=== PATIENT | female | born 1930 | race Caucasian/White ===

== ENCOUNTER 2017-09-10 19:59 | Inpatient (IN) | payer MEDICARE, OTHER ==
[~2017-09-10 19:59] MED LIST: ISOVUE-370 76%-LOCM 1 ML ONE
[2017-09-10] MEDS ORDERED: Piperacillin/Tazobactam 3.375 GM in Sodium Chloride 0.9% 100 ML IVPB SCH (20:45)
[2017-09-10 20:50] LABS: #Eosinphils 0.1 thou/uL (0.0-0.7); #Lymphocytes 1.6 thou/uL (1.20-3.40); #Monocytes 0.2 thou/uL (0.11-0.59); #Neutrophils 4.4 thou/uL (1.40-6.50); %Basophils 0.3 % (0.0-1.0); %Eosinophils 1.2 % (0.0-10.0); %Lymphocytes 25.6 % (21.0-51.0); %Monocytes 3.8 % (0.0-10.0); %Neutrophils 69.2 % (42.0-75.0); Hemoglobin 13.5 g/dL (12.0-16.0); Mean Corpuscular HGB CONC 32.3 g/dL (32.0-36.0); Mean Corpuscular Hemoglobin 30.2 pg (27.0-31.0); Mean Corpuscular Volume 93.6 fl (81.0-99.0); Platelet Count 326 thou/uL (130-400); RBC Distribution Width 14.6 % (11.5-14.5); Red Blood Cell (RBC) Count 4.45 mill/uL (4.20-5.40); White Blood Cell (WBC) Count 6.4 thou/uL (4.8-10.8)
[2017-09-10 21:12] LABS: ALT (SGPT) 10 U/L (8-55); AST (SGOT) 37 U/L (5-34); Albumin 3.3 g/dL (3.4-4.8); Alkaline Phosphatase 56 U/L (40-150); Anion Gap 19 mmol/L (10-20); BUN (Urea Nitrogen) 21 mg/dL (9.8-20.1); Bilirubin, Total 0.6 mg/dL (0.2-1.2); CK (CPK) 18 U/L (29-168); Calc. Creatinine Clearance 0 mL/min (70-130); Carbon Dioxide 22 mmol/L (23-31); Chloride 100 mmol/L (98-107); Estimated GFR-MDRD 71; Globulin 4.6 g/dL (2.4-3.5); Glucose 102 mg/dL (83-110); Protein, Total 7.9 g/dL (6.0-8.3); Sodium 136 mmol/L (136-145)
[2017-09-10 21:15] LABS: CKMB 0.6 ng/mL (0-6.6); Troponin I 0.017 ng/mL (< 0.028)
[2017-09-10 21:17] LABS: Bilirubin Large (Negative); Blood, Urine Small (Negative); Clarity CLEAR (Clear); Glucose, Urine (Dipstick) Negative (Negative); Leukocyte Negative (Negative); Nitrite Negative (Negative); Protein, Urine (Dipstick) 100 mg/dL (Neg-Trace); Specific Gravity, Urine 1.033 (1.002-1.036); pH, Urine 5.5 (5.0-9.0)
[2017-09-10 21:19] LABS: Bacteria/HPF None Seen HPF (None Seen); Pathc Cast-AUWi Flag 1.76 (0-2.49)
--- NOTE | 2017-09-10 21:24 | RAD ---
PORTABLE CHEST: 09/10/17 HISTORY: Dyspnea. Heart size is enlarged. There are atherosclerotic changes of the aorta. There are chronic lung change s without focal infiltrates. IMPRESSION: Cardiomegaly with chronic lung change POS: [facility]
[2017-09-10 21:28] LABS: Hyaline Casts/LPF 7-10 HYALINE CAST LPF (0-3 Hyaline)
[2017-09-10 21:29] LABS: Renal Epithelial 0-3 HPF (0-3)
--- NOTE | 2017-09-10 22:18 | CT ---
CT ANGIOGRAM THORAX WITH IV CONTRAST AND 3D RECONSTRUCTIONS: 09/10/17 HISTORY: Dyspnea. Hypoxic. FINDINGS: No filling defects are seen in the pulmonary arteries to suggest a pulmonary embolus. The thoracic aorta is not well opacified on this examination for evaluation of aortic dissection. How ever, no aneurysmal dilatation is seen involving the thoracic aorta. Dense atherosclerotic vascular c alcifications are seen in the coronary arteries as well as involving the thoracic aorta. The heart is enlarged. There are bilateral pleural effusions with associated patchy parenchymal opacities at each lung base probably related to passive atelectasis. However, there is also decreased attenuation seen within lef t lower lobe bronchi which could be related to mucous plugging. Similar findings but to a lesser exte nt is seen in the right lower lobe. A few minimal patchy density seen at the peripheral aspect of the right upper lobe which could be related to infectious or inflammatory process. Linear densities are seen in the lingula which could be related to atelectasis or scarring. No lymphadenopathy is appreciated. Calcified granuloma is seen in the spleen. Vascular calcification seen in the abdominal aorta. The remainder of the upper abdomen has a normal CT appearance. There are compression fractures involving several thoracic vertebral bodies with vertebra planus type deformity involving the T9 vertebral body and prominent compression fracture of the T11 vertebral humaira dy as well. Multilevel degenerative changes are present. IMPRESSION: 1. No CT evidence of a pulmonary embolus. 2. Small bilateral pleural effusion and associated passive atelectasis. 3. Patchy density in the peripheral aspect of the right upper lobe which could be related to inf ectious or inflammatory process. 4. Cardiomegaly. 5. Dense atherosclerotic vascular calcifications. 6. Multiple compression fractures of indeterminate age involving the thoracic spine. There is ex aggerated kyphosis. POS: [facility]
--- NOTE | 2017-09-11 00:05 | HP ---
PRIMARY CARE PHYSICIAN: Sean Kennedy MD REASON FOR ADMISSION: Transfer from [facility] for hypoxia. HISTORY OF PRESENT ILLNESS: An 87-year-old female who is DNR and lives at [facility]. F or the last 2-3 weeks, she was having upper respiratory infection and subsequently she was having wor se cough with productive of sputum and primary care physician gave her antibiotic. Patient has finis hed antibiotic course, but her cough is not getting better. She was not on oxygen before and at [facility] home, she was requiring oxygen. She was feeling more short of breath and that is why she request ed to go to the hospital. In the emergency room, we noted that she was having cough productive of yellowish sputum. She was hy poxic and she was requiring oxygen. She was afebrile in the emergency room. Her initial chest x-ray was unremarkable, and they did a CT angio to rule out PE that showed right upper lobe infiltration a nd bibasilar pleural effusion. The patient denies any pleuritic chest pain. She denies any UTI symp toms. She denies any constipation, diarrhea, melena, or hematochezia. The patient reports that she has history of atrial fibrillation and she is on anticoagulation therapy . She is not sure about the diagnosis of congestive heart failure. 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 Kennedy. ALLERGIES: CIPRO, CODEINE, PEANUT, SULFA. CURRENT HOME MEDICATIONS: Amlodipine 2.5 mg p.o. daily, Tenormin 25 mg p.o. daily, vitamin D3 of 200 0 units p.o. daily, folic acid 1 mg p.o. daily, methotrexate 2.5 mg p.o. on Tuesday, Synthroid 100 mcg p.o. daily, Remeron 7.5 mg p.o. at bedtime, magnesium oxide 400 mg p.o. daily, potassium chloride 20 mEq p.o. daily, Dulcolax 10 mg p.o. daily, Coumadin 2.5 mg daily on Tuesday, Tuesday, Tuesday, , , Tuesday, and 5 mg on Tuesday. REVIEW OF SYSTEMS: The following complete review of systems was negative, unless otherwise mentioned in the HPI or below: Constitutional: Weight loss or gain, ability to conduct usual activities. Sk in: Rash, itching. Eyes: Double vision, pain. ENT/Mouth: Nose bleeding, neck stiffness, pain, te nderness. Cardiovascular: Palpitations, dyspnea on exertion, orthopnea. Respiratory: Shortness of breath, wheezing, cough, hemoptysis, fever or night sweats. Gastrointestinal: Poor appetite, abdom inal pain, heartburn, nausea, vomiting, constipation, or diarrhea. Genitourinary: Urgency, frequenc y, dysuria, nocturia. Musculoskeletal: Pain, swelling. Neurologic/Psychiatric: Anxiety, depressio n. Allergy/Immunologic: Skin rash, bleeding tendency. Please see my HPI for pertinent positives an d negatives. PAST MEDICAL HISTORY: Atrial fibrillation, diabetes type 2, hypertension, hypothyroidism, peripheral neuropathy, osteoarthritis, normochromic normocytic anemia, history of breast cancer, history of CHF , oropharyngeal dysphagia, and dementia. PAST SURGICAL HISTORY: Bilateral mastectomy, hysterectomy. PAST PSYCHIATRIC HISTORY: Anxiety and depression. SOCIAL HISTORY: The patient lives at [facility]. The patient is DNR. No history of cur rent tobacco, alcohol, or illicit drug abuse. She was an exsmoker. FAMILY HISTORY: No strong family history of premature coronary artery disease, stroke, or cancer. EMERGENCY ROOM COURSE: Patient is given vancomycin, Zosyn, IV fluid. PHYSICAL EXAMINATION: VITAL SIGNS: On arrival, blood pressure 152/85, pulse 82, respiratory rate 24, temperature 97.6, sat uration 93% on 2 liter oxygen, weight 61.2 kilograms. GENERAL: The patient is hypertensive, tachypneic, chronically ill. HEAD: Normocephalic, atraumatic. EYES: Pupils round, reactive to light. Extraocular muscles intact. ENT: Dry mucous membranes. No oral lesions, no pharyngeal erythema, no exudate. NECK: Supple. JVD present. No thyromegaly, no carotid bruit. LUNGS: Bibasilar rales noted. Bibasilar reduced air entry and expiratory wheezing heard all over, e specially on the right upper lobe. CARDIAC: S1, S2 appears regular, soft systolic murmur noted parasternally. No gallop, no rub. ABDOMEN: Soft, bowel sounds present, nontender, nondistended. No organomegaly, no mass, no suprapub ic tenderness. BACK: Unremarkable. No CVA tenderness. EXTREMITIES: Upper extremity: Passive movement of all joints are normal. Lower extremities: No ed piedad. Good peripheral pulsation. SKIN: No skin rash. HEMATOLOGIC: No lymphadenopathy. PSYCHIATRIC: Normal affect. SIGNIFICANT LABORATORY AND DIAGNOSTIC DATA: EKG showing atrial fibrillation with controlled ventricu lar response, left axis deviation. CT chest showing cardiomegaly, chronic lung changes. CT chest sh owing bilateral pleural effusions, right upper lobe patchy infiltration, no evidence of pulmonary emb olism. CBC: WBC 6.4, hemoglobin 13.5, platelets 326. BMP: Sodium 136, potassium 5.0, chloride 100 , carbon dioxide 22, anion gap 19, BUN 21, creatinine 0.77, glucose 102, calcium 9.0. Lactic acid 1. 3. LFT: AST 37, ALT 10, alkaline phosphatase 56, albumin 3.3. CK of 18, CK-MB 0.6, troponin I 0.01 7. BNP 157.1. Urinalysis: Rbc 11-20, wbc 4-6. ASSESSMENT: 1. Acute hypoxic respiratory failure. 2. Acute on chronic diastolic heart failure exacerbation. 3. Right upper lobe residential-acquired pneumonia, failed outpatient therapy. 4. Bilateral pleural effusion with atelectasis related with diastolic heart failure. 5. Multiple compression fractures of the thoracic spine. 6. Moderate protein-calorie malnutrition. 7. Atrial fibrillation with controlled ventricular response. 8. Suspected urinary tract infection. 9. Hypertension. 10. Hypothyroidism. 11. Chronic anticoagulation with warfarin. PLAN: Admission to medical floor. Once we verify her home medication, we will start selective home medication, empiric antibiotic therapy with vancomycin and Zosyn. Echocardiography. Pharmacy to man age warfarin, nutritional support with Ensure, Lasix 20 mg IV daily, DuoNeb therapy q.6 hourly. Foll ow up on culture result. Check influenza screen. DVT prophylaxis with warfarin. GI prophylaxis wit h Pepcid. CODE STATUS: DO NOT RESUSCITATE that is confirmed with the patient's family member in the emergency room. Disposition plan based on clinical course. We are expecting patient's stay in hospital more than 2 m idnights. Plan of care discussed with the patient and family member at bedside in the emergency room .
[2017-09-11] MEDS ORDERED: Milk Of Magnesia 30 ML UDCUP PO PRN (01:12)
[2017-09-11] MEDS ORDERED: Diabetic Tussin 200 MG/10 ML UDCUP PO PRN (01:12)
[2017-09-11] MEDS ORDERED: Ondansetron ODT 4 MG TAB SL PRN (01:12)
[2017-09-11] MEDS ORDERED: hydrALAZINE 20 MG/ML VIAL SLOW IVP PRN (01:12)
[2017-09-11] MEDS ORDERED: Sodium Chloride 0.9% 1,000 ML IV SCH (01:12)
[2017-09-11] MEDS ORDERED: Senokot 8.6 MG TAB PO PRN (01:12)
[2017-09-11] MEDS ORDERED: Loperamide HCl 2 MG CAP PO PRN (01:12)
[2017-09-11] MEDS ORDERED: Mag-Al 1200 mg/1200 mg/30 ML UDCUP PO PRN (01:12)
[2017-09-11] MEDS ORDERED: Ondansetron ODT 4 MG TAB PO PRN (01:12)
[2017-09-11] MEDS ORDERED: Ondansetron HCl/PF 4 MG/2 ML Vial IVP PRN ×2 (01:12)
[2017-09-11] MEDS ORDERED: Acetaminophen 325 MG TAB PO PRN ×2 (01:12)
[2017-09-11] MEDS: Piperacillin/Tazobactam 3.375 GM in Sodium Chloride 0.9% 100 ML IVPB SCH ×3 (05:34→17:26)
[2017-09-11] MEDS: Levothyroxine Sodium 100 MCG TAB PO SCH (05:34)
[2017-09-11 05:57] LABS: #Basophils 0.1 thou/uL (0.0-0.2); #Eosinphils 0.2 thou/uL (0.0-0.7); #Lymphocytes 1.4 thou/uL (1.20-3.40); #Monocytes 0.3 thou/uL (0.11-0.59); #Neutrophils 3.3 thou/uL (1.40-6.50); %Basophils 1.1 % (0.0-1.0); %Eosinophils 3.1 % (0.0-10.0); %Lymphocytes 26.7 % (21.0-51.0); %Monocytes 6.1 % (0.0-10.0); Hemoglobin 12.6 g/dL (12.0-16.0); Mean Corpuscular HGB CONC 31.8 g/dL (32.0-36.0); Mean Corpuscular Hemoglobin 29.8 pg (27.0-31.0); Mean Corpuscular Volume 93.7 fl (81.0-99.0); Mean Platelet Volume 6.9 fL (7.4-10.4); Platelet Count 293 thou/uL (130-400); RBC Distribution Width 14.7 % (11.5-14.5); Red Blood Cell (RBC) Count 4.21 mill/uL (4.20-5.40); White Blood Cell (WBC) Count 5.3 thou/uL (4.8-10.8)
[2017-09-11] MEDS ORDERED: Piperacillin/Tazobactam 4.5 GM in Sodium Chloride 0.9% 100 ML IVPB SCH (06:00)
[2017-09-11 06:21] LABS: Anion Gap 11 mmol/L (10-20); BUN (Urea Nitrogen) 18 mg/dL (9.8-20.1); Calc. Creatinine Clearance 50 mL/min (70-130); Calcium 8.7 mg/dL (7.8-10.44); Carbon Dioxide 30 mmol/L (23-31); Chloride 100 mmol/L (98-107); Estimated GFR-MDRD 75; Glucose 89 mg/dL (83-110); Sodium 137 mmol/L (136-145); Uric Acid 5.9 mg/dL (2.6-6.0)
[2017-09-11 06:50] LABS: Prothrombin Time 88.1 SEC (12.0-14.7)
[2017-09-11 06:53] LABS: INR-International Normal Ratio 10.2
[2017-09-11] MEDS ORDERED: Phytonadione 10 MG/ML AMP PO SCH (08:30)
[2017-09-11] MEDS: Atenolol 25 MG TAB PO SCH (09:09)
[2017-09-11] MEDS: Saccharomyces boulardii 250 MG CAP PO SCH (09:09)
[2017-09-11] MEDS: Folic Acid 1 MG TAB PO SCH (09:09)
[2017-09-11] MEDS: Magnesium Oxide 400 MG TAB PO SCH (09:09)
[2017-09-11] MEDS: Famotidine 20 MG TAB PO SCH ×2 (09:10→22:01)
[2017-09-11] MEDS: guaiFENesin ER 600 MG TAB PO SCH ×2 (09:10→22:01)
[2017-09-11] MEDS: Amlodipine 5 MG TAB PO SCH (09:10)
[2017-09-11] MEDS: Potassium Chloride 20 MEQ TAB PO SCH (09:10)
[2017-09-11] MEDS: Furosemide 20 MG/2 ML VIAL SLOW IVP SCH (09:10)
[2017-09-11] MEDS: Oseltamivir 75 MG CAP PO SCH ×2 (09:10→22:01)
--- NOTE | 2017-09-11 11:49 | PDOC.PN ---
- Subjective Encounter Start Date: 09/11/17 Encounter Start Time: 08:00 Subjective: no sob, feels better this morning - Objective Resuscitation Status: Resuscitation Status DNR:Do Not Resuscitate MAR Reviewed: Yes Vital Signs & Weight: Vital Signs (12 hours) Temp Pulse Resp BP Pulse Ox 09/11/17 11:35 97.5 F L 67 16 154/89 H 93 L 09/11/17 09:10 64 09/11/17 09:09 64 09/11/17 08:42 97.8 F 59 L 20 136/84 97 09/11/17 08:00 97.8 F 64 20 93 L 09/11/17 04:00 156/96 H 09/11/17 00:35 98.9 F 82 16 167/91 H 95 Weight Weight 134 lb 14.766 oz Result Diagrams: 09/11/17 05:26 09/11/17 05:27 Additional Labs: Accuchecks 09/11/17 05:08 POC Glucose 105 Phys Exam - Physical Examination HEENT: PERRLA, sclera anicteric Neck: no JVD, supple Respiratory: no wheezing, no rales Cardiovascular: RRR, no significant murmur Gastrointestinal: soft, non-tender, positive bowel sounds Musculoskeletal: no edema, pulses present Neurological: non-focal, moves all 4 limbs Dx/Plan (1) Influenza B Code(s): J10.1 - FLU DUE TO OTH IDENT INFLUENZA VIRUS W OTH RESP MANIFEST Status: Acute (2) PNA (pneumonia) Code(s): J18.9 - PNEUMONIA, UNSPECIFIED ORGANISM Status: Acute Qualifiers: Pneumonia type: due to unspecified organism Laterality: right (3) Compression fracture of thoracic vertebra Code(s): S22.000A - WEDGE COMPRESSION FRACTURE OF UNSP THORACIC VERTEBRA, INIT Status: Chronic Qualifiers: Fracture type: closed (4) Afib Code(s): I48.91 - UNSPECIFIED ATRIAL FIBRILLATION Status: Chronic Qualifiers: Atrial fibrillation type: chronic Qualified Code(s): I48.2 - Chronic atrial fibrillation (5) DM type 2 (diabetes mellitus, type 2) Status: Chronic Qualifiers: Diabetes mellitus complication status: with unspecified complications Diabetes mellitus ad terminal makeup operator insulin use: without mcfp use Qualified Code( s): E11.8 - Type 2 diabetes mellitus with unspecified complications (6) HTN (hypertension) Code(s): I10 - ESSENTIAL (PRIMARY) HYPERTENSION Status: Chronic Qualifiers: Hypertension type: essential hypertension Qualified Code(s): I10 - Essential (primary) hypertension (7) Dyslipidemia Code(s): E78.5 - HYPERLIPIDEMIA, UNSPECIFIED Status: Chronic (8) Hypothyroidism Code(s): E03.9 - HYPOTHYROIDISM, UNSPECIFIED Status: Chronic Qualifiers: Hypothyroidism type: unspecified Qualified Code(s): E03.9 - Hypothyroidism , unspecified (9) Warfarin-induced coagulopathy Code(s): D68.9 - COAGULATION DEFECT, UNSPECIFIED; T45.515A - ADVERSE EFFECT OF ANTICOAGULANTS, INITIAL ENCOUNTER Status: Acute (10) Dementia Code(s): F03.90 - UNSPECIFIED DEMENTIA WITHOUT BEHAVIORAL DISTURBANCE Status: Chronic Qualifiers: Dementia type: unspecified type - Plan inr is 10 this am, one dose vit K po -: has dried up blood over gums, no overt bleeding for now -: is on vanc and zosyn, nebs -: dc lasix iv -: PT to mobilize as tolerated, watch for falls with coagulopathy * . Review of Systems - Medications/Allergies Allergies/Adverse Reactions: Allergies Allergy/AdvReac Type Severity Reaction Status Date / Time ciprofloxacin [From Cipro] Allergy Verified 09/10/17 20:42 codeine Allergy Verified 09/10/17 20:42 peanut Allergy Verified 09/10/17 20:42 Sulfa (Sulfonamide Allergy Verified 09/10/17 20:42 Antibiotics) Medications: Current Medications Acetaminophen (Tylenol) 650 mg PO Q4H PRN PRN Reason: Headache/Fever or Pain Al Hydroxide/Mg Hydroxide (Maalox) 30 ml PO Q6H PRN PRN Reason: Heartburn or Indigestion Albuterol/Ipratropium (Duoneb) 3 ml NEB Q6H PRN PRN Reason: SOB &/or Wheezing Amlodipine Besylate (Norvasc) 2.5 mg PO DAILY [facility] Last Admin: 09/11/17 09:10 Dose: 2.5 mg Atenolol (Tenormin) 25 mg PO DAILY [facility] Last Admin: 09/11/17 09:09 Dose: 25 mg Cholecalciferol (Vitamin D3) 2,000 units PO DAILY [facility] Last Admin: 09/11/17 09:10 Dose: 2,000 units Famotidine (Pepcid) 20 mg PO BID [facility] Last Admin: 09/11/17 09:10 Dose: 20 mg Folic Acid (Folvite) 1 mg PO DAILY [facility] Last Admin: 09/11/17 09:09 Dose: 1 mg Furosemide (Lasix) 20 mg SLOW IVP DAILY [facility] Last Admin: 09/11/17 09:10 Dose: 20 mg Guaifenesin (Robitussin Sf) 200 mg PO Q4H PRN PRN Reason: Cough Guaifenesin (Mucinex) 600 mg PO Q12HR [facility] Last Admin: 09/11/17 09:10 Dose: 600 mg Hydralazine HCl (Apresoline) 10 mg SLOW IVP Q4H PRN PRN Reason: Systolic BP > 180 Piperacillin Sod/Tazobactam (Sod 3.375 gm/ Sodium Chloride) 100 mls @ 200 mls/ hr IVPB Q6HR [facility] Last Admin: 09/11/17 05:34 Dose: 100 mls Vancomycin HCl 1.25 gm/ Sodium (Chloride) 250 mls @ 166.667 mls/hr IVPB Q24HR@ 2200 [facility] Levothyroxine Sodium (Synthroid) 100 mcg PO 0600 [facility] Last Admin: 09/11/17 05:34 Dose: 100 mcg Loperamide HCl (Imodium) 2 mg PO PRN PRN PRN Reason: Diarrhea/Loose Stools Magnesium Hydroxide (Milk Of Magnesium) 30 ml PO DAILYPRN PRN PRN Reason: Constipation Magnesium Oxide (Magnesium Oxide) 400 mg PO DAILY [facility] Last Admin: 09/11/17 09:09 Dose: 400 mg Mirtazapine (Remeron) 7.[address] [facility] Miscellaneous Medication (Pharmacy To Dose) 0 each IVPB PRN PRN PRN Reason: [facility] Pharmacy to Dose Miscellaneous Medication (Pharmacy To Dose) 0 each PO PRN PRN PRN Reason: [facility] Pharmacy to Dose Ondansetron HCl (Zofran Odt) 4 mg PO Q6H PRN PRN Reason: Nausea/Vomiting Ondansetron HCl (Zofran) 4 mg IVP Q6H PRN PRN Reason: Nausea/Vomiting Oseltamivir Phosphate (Tamiflu) 75 mg PO BID [facility] Stop: 09/15/17 21:01 Last Admin: 09/11/17 09:10 Dose: 75 mg Pneumococcal 13-Valent Conj Vacc (Prevnar) 0.5 ml IM .ONCE ONE Stop: 09/12/17 09:01 Potassium Chloride (K-Dur) 20 meq PO QAM-WM [facility] Last Admin: 09/11/17 09:10 Dose: 20 meq Saccharomyces Boulardii (Florastor) 250 mg PO DAILY [facility] Last Admin: 09/11/17 09:09 Dose: 250 mg Senna (Senokot) 2 tab PO HSPRN PRN PRN Reason: Constipation Sodium Chloride (Flush - Normal Saline) 10 ml IVF Q12HR [facility] Last Admin: 09/11/17 09:11 Dose: 10 ml Sodium Chloride (Flush - Normal Saline) 10 ml IVF PRN PRN PRN Reason: Saline Flush
[2017-09-11] MEDS ORDERED: Vancomycin HCl 1.25 GM in Sodium Chloride 0.9% 250 ML 250 ML IVPB SCH (21:00)
[2017-09-11] MEDS: Mirtazapine 15 MG TAB PO SCH (22:01)
[2017-09-11] MEDS: Vancomycin HCl 1.25 GM in Sodium Chloride 0.9% 250 ML 250 ML IVPB SCH (22:09)
[2017-09-12] MEDS: Piperacillin/Tazobactam 3.375 GM in Sodium Chloride 0.9% 100 ML IVPB SCH ×4 (00:31→17:59)
[2017-09-12 05:44] LABS: #Eosinphils 0.2 thou/uL (0.0-0.7); #Lymphocytes 1.5 thou/uL (1.20-3.40); #Monocytes 0.2 thou/uL (0.11-0.59); #Neutrophils 3.8 thou/uL (1.40-6.50); %Basophils 0.6 % (0.0-1.0); %Eosinophils 3.3 % (0.0-10.0); %Lymphocytes 26.8 % (21.0-51.0); %Monocytes 3.9 % (0.0-10.0); %Neutrophils 65.4 % (42.0-75.0); Hemoglobin 12.2 g/dL (12.0-16.0); Mean Corpuscular HGB CONC 31.6 g/dL (32.0-36.0); Mean Corpuscular Hemoglobin 29.7 pg (27.0-31.0); Mean Corpuscular Volume 93.9 fl (81.0-99.0); Mean Platelet Volume 7.3 fL (7.4-10.4); Platelet Count 311 thou/uL (130-400); RBC Distribution Width 14.7 % (11.5-14.5); Red Blood Cell (RBC) Count 4.12 mill/uL (4.20-5.40); White Blood Cell (WBC) Count 5.7 thou/uL (4.8-10.8)
[2017-09-12 05:50] LABS: INR-International Normal Ratio 1.7; PTT 43.3 SEC (22.9-36.1); Prothrombin Time 20.5 SEC (12.0-14.7)
[2017-09-12 05:57] LABS: Anion Gap 15 mmol/L (10-20); BUN (Urea Nitrogen) 16 mg/dL (9.8-20.1); Calc. Creatinine Clearance 52 mL/min (70-130); Calcium 8.7 mg/dL (7.8-10.44); Carbon Dioxide 28 mmol/L (23-31); Chloride 99 mmol/L (98-107); Estimated GFR-MDRD 78; Glucose 94 mg/dL (83-110); Potassium 3.7 mmol/L (3.5-5.1); Sodium 138 mmol/L (136-145)
[2017-09-12] MEDS: Levothyroxine Sodium 100 MCG TAB PO SCH (06:08)
[2017-09-12] MEDS ORDERED: Prevnar 13-Val Conj/PF 0.5 ML SYRINGE IM ONE (09:00)
[2017-09-12] MEDS: Potassium Chloride 20 MEQ TAB PO SCH (09:21)
[2017-09-12] MEDS: Folic Acid 1 MG TAB PO SCH (09:22)
[2017-09-12] MEDS: guaiFENesin ER 600 MG TAB PO SCH ×2 (09:22→20:17)
[2017-09-12] MEDS: Amlodipine 5 MG TAB PO SCH (09:22)
[2017-09-12] MEDS: Saccharomyces boulardii 250 MG CAP PO SCH (09:22)
[2017-09-12] MEDS: Famotidine 20 MG TAB PO SCH ×2 (09:23→20:17)
[2017-09-12] MEDS: Atenolol 25 MG TAB PO SCH (09:23)
[2017-09-12] MEDS: Magnesium Oxide 400 MG TAB PO SCH (09:23)
[2017-09-12] MEDS: Furosemide 20 MG/2 ML VIAL SLOW IVP SCH (09:23)
[2017-09-12] MEDS: Oseltamivir 75 MG CAP PO SCH ×2 (09:23→20:16)
--- NOTE | 2017-09-12 13:35 | PDOC.PN ---
- Subjective Encounter Start Date: 09/12/17 Encounter Start Time: 07:25 Subjective: lethargic says she is still waking up -: no sob - Objective Resuscitation Status: Resuscitation Status DNR:Do Not Resuscitate MAR Reviewed: Yes Vital Signs & Weight: Vital Signs (12 hours) Temp Pulse Resp BP BP Pulse Ox 09/12/17 11:00 97.6 F 64 16 123/81 94 L 09/12/17 09:23 84 138/86 09/12/17 09:22 88 138/86 09/12/17 07:21 98.2 F 88 20 109/72 94 L 09/12/17 05:00 98.6 F 88 18 160/89 H 93 L Weight Weight 126 lb 3 oz I&O: 09/11/17 09/12/17 09/13/17 06:59 06:59 06:59 Intake Total 740 180 Balance 740 180 Result Diagrams: 09/12/17 04:49 09/12/17 04:49 Phys Exam - Physical Examination HEENT: PERRLA dry mucosa Neck: no JVD, supple Respiratory: no wheezing, no rales rhonchi+ Cardiovascular: RRR, no significant murmur Gastrointestinal: soft, non-tender, positive bowel sounds Musculoskeletal: no edema, pulses present Neurological: non-focal, moves all 4 limbs Dx/Plan (1) Influenza B Code(s): J10.1 - FLU DUE TO OTH IDENT INFLUENZA VIRUS W OTH RESP MANIFEST Status: Acute (2) PNA (pneumonia) Code(s): J18.9 - PNEUMONIA, UNSPECIFIED ORGANISM Status: Acute Qualifiers: Pneumonia type: due to unspecified organism Laterality: right (3) Compression fracture of thoracic vertebra Code(s): S22.000A - WEDGE COMPRESSION FRACTURE OF UNSP THORACIC VERTEBRA, INIT Status: Chronic Qualifiers: Fracture type: closed (4) Afib Code(s): I48.91 - UNSPECIFIED ATRIAL FIBRILLATION Status: Chronic Qualifiers: Atrial fibrillation type: chronic Qualified Code(s): I48.2 - Chronic atrial fibrillation (5) DM type 2 (diabetes mellitus, type 2) Status: Chronic Qualifiers: Diabetes mellitus complication status: with unspecified complications Diabetes mellitus retirement insulin use: without petroleum terminal plant operator use Qualified Code( s): E11.8 - Type 2 diabetes mellitus with unspecified complications (6) HTN (hypertension) Code(s): I10 - ESSENTIAL (PRIMARY) HYPERTENSION Status: Chronic Qualifiers: Hypertension type: essential hypertension Qualified Code(s): I10 - Essential (primary) hypertension (7) Dyslipidemia Code(s): E78.5 - HYPERLIPIDEMIA, UNSPECIFIED Status: Chronic (8) Hypothyroidism Code(s): E03.9 - HYPOTHYROIDISM, UNSPECIFIED Status: Chronic Qualifiers: Hypothyroidism type: unspecified Qualified Code(s): E03.9 - Hypothyroidism , unspecified (9) Warfarin-induced coagulopathy Code(s): D68.9 - COAGULATION DEFECT, UNSPECIFIED; T45.515A - ADVERSE EFFECT OF ANTICOAGULANTS, INITIAL ENCOUNTER Status: Resolved (10) Dementia Code(s): F03.90 - UNSPECIFIED DEMENTIA WITHOUT BEHAVIORAL DISTURBANCE Status: Chronic Qualifiers: Dementia type: unspecified type - Plan inr is 1.7 this am, is off coumadin -: dc lasix, is on tamiflu along with vanc and zosyn -: encourage po intake, eating poorly per staff -: oob to chair as tolerated, watch for falls with prior compression fracture -: nebs, freq pulm toilet * . Review of Systems - Medications/Allergies Allergies/Adverse Reactions: Allergies Allergy/AdvReac Type Severity Reaction Status Date / Time ciprofloxacin [From Cipro] Allergy Verified 09/10/17 20:42 codeine Allergy Verified 09/10/17 20:42 peanut Allergy Verified 09/10/17 20:42 Sulfa (Sulfonamide Allergy Verified 09/10/17 20:42 Antibiotics) Medications: Current Medications Acetaminophen (Tylenol) 650 mg PO Q4H PRN PRN Reason: Headache/Fever or Pain Al Hydroxide/Mg Hydroxide (Maalox) 30 ml PO Q6H PRN PRN Reason: Heartburn or Indigestion Albuterol/Ipratropium (Duoneb) 3 ml NEB Q6H PRN PRN Reason: SOB &/or Wheezing Amlodipine Besylate (Norvasc) 2.5 mg PO DAILY [facility] Last Admin: 09/12/17 09:22 Dose: 2.5 mg Atenolol (Tenormin) 25 mg PO DAILY [facility] Last Admin: 09/12/17 09:23 Dose: 25 mg Cholecalciferol (Vitamin D3) 2,000 units PO DAILY [facility] Last Admin: 09/12/17 09:22 Dose: 2,000 units Famotidine (Pepcid) 20 mg PO BID [facility] Last Admin: 09/12/17 09:23 Dose: 20 mg Folic Acid (Folvite) 1 mg PO DAILY [facility] Last Admin: 09/12/17 09:22 Dose: 1 mg Guaifenesin (Robitussin Sf) 200 mg PO Q4H PRN PRN Reason: Cough Guaifenesin (Mucinex) 600 mg PO Q12HR [facility] Last Admin: 09/12/17 09:22 Dose: 600 mg Hydralazine HCl (Apresoline) 10 mg SLOW IVP Q4H PRN PRN Reason: Systolic BP > 180 Piperacillin Sod/Tazobactam (Sod 3.375 gm/ Sodium Chloride) 100 mls @ 200 mls/ hr IVPB Q6HR [facility] Last Admin: 09/12/17 12:43 Dose: 100 mls Vancomycin HCl 1.25 gm/ Sodium (Chloride) 250 mls @ 166.667 mls/hr IVPB Q24HR@ 2200 [facility] Last Admin: 09/11/17 22:09 Dose: 250 mls Levothyroxine Sodium (Synthroid) 100 mcg PO 0600 [facility] Last Admin: 09/12/17 06:08 Dose: 100 mcg Loperamide HCl (Imodium) 2 mg PO PRN PRN PRN Reason: Diarrhea/Loose Stools Magnesium Hydroxide (Milk Of Magnesium) 30 ml PO DAILYPRN PRN PRN Reason: Constipation Magnesium Oxide (Magnesium Oxide) 400 mg PO DAILY [facility] Last Admin: 09/12/17 09:23 Dose: 400 mg Mirtazapine (Remeron) 7.5 mg PO HS [facility] Last Admin: 09/11/17 22:01 Dose: 7.5 mg Miscellaneous Medication (Pharmacy To Dose) 0 each IVPB PRN PRN PRN Reason: VANC Pharmacy to Dose Miscellaneous Medication (Pharmacy To Dose) 0 each PO PRN PRN PRN Reason: [facility]AR[facility] Pharmacy to Dose Ondansetron HCl (Zofran Odt) 4 mg PO Q6H PRN PRN Reason: Nausea/Vomiting Ondansetron HCl (Zofran) 4 mg IVP Q6H PRN PRN Reason: Nausea/Vomiting Oseltamivir Phosphate (Tamiflu) 75 mg PO BID [facility] Stop: 09/15/17 21:01 Last Admin: 09/12/17 09:23 Dose: 75 mg Saccharomyces Boulardii (Florastor) 250 mg PO DAILY [facility] Last Admin: 09/12/17 09:22 Dose: 250 mg Senna (Senokot) 2 tab PO HSPRN PRN PRN Reason: Constipation Sodium Chloride (Flush - Normal Saline) 10 ml IVF Q12HR [facility] Last Admin: 09/12/17 09:24 Dose: 10 ml Sodium Chloride (Flush - Normal Saline) 10 ml IVF PRN PRN PRN Reason: Saline Flush
[2017-09-12 15:39] LABS: INR-International Normal Ratio 1.5; Prothrombin Time 18.7 SEC (12.0-14.7)
[2017-09-12] MEDS ORDERED: Warfarin Sodium 2.5 MG TAB PO SCH (17:00)
[2017-09-12] MEDS: Mirtazapine 15 MG TAB PO SCH (20:16)
[2017-09-12] MEDS: Vancomycin HCl 1.25 GM in Sodium Chloride 0.9% 250 ML 250 ML IVPB SCH ×2 (20:17→22:05)
[2017-09-12 21:38] LABS: Vancomycin, Trough 15.6 ug/mL
[2017-09-13] MEDS: Piperacillin/Tazobactam 3.375 GM in Sodium Chloride 0.9% 100 ML IVPB SCH ×5 (00:36→23:21)
[2017-09-13 05:33] LABS: #Eosinphils 0.2 thou/uL (0.0-0.7); #Lymphocytes 1.6 thou/uL (1.20-3.40); #Monocytes 0.8 thou/uL (0.11-0.59); #Neutrophils 4.9 thou/uL (1.40-6.50); %Basophils 0.4 % (0.0-1.0); %Eosinophils 2.6 % (0.0-10.0); %Lymphocytes 21.5 % (21.0-51.0); %Neutrophils 65.5 % (42.0-75.0); Hemoglobin 12.2 g/dL (12.0-16.0); Mean Corpuscular HGB CONC 32.2 g/dL (32.0-36.0); Mean Corpuscular Hemoglobin 30.2 pg (27.0-31.0); Mean Corpuscular Volume 93.7 fl (81.0-99.0); Platelet Count 313 thou/uL (130-400); RBC Distribution Width 14.6 % (11.5-14.5); Red Blood Cell (RBC) Count 4.05 mill/uL (4.20-5.40); White Blood Cell (WBC) Count 7.5 thou/uL (4.8-10.8)
[2017-09-13 05:39] LABS: INR-International Normal Ratio 1.4; Prothrombin Time 17.9 SEC (12.0-14.7)
[2017-09-13 05:45] LABS: Anion Gap 16 mmol/L (10-20); BUN (Urea Nitrogen) 13 mg/dL (9.8-20.1); Calc. Creatinine Clearance 49 mL/min (70-130); Calcium 8.7 mg/dL (7.8-10.44); Carbon Dioxide 28 mmol/L (23-31); Chloride 99 mmol/L (98-107); Estimated GFR-MDRD 79; Glucose 110 mg/dL (83-110); Potassium 3.2 mmol/L (3.5-5.1); Sodium 140 mmol/L (136-145)
[2017-09-13] MEDS: Levothyroxine Sodium 100 MCG TAB PO SCH (06:37)
[2017-09-13] MEDS: Saccharomyces boulardii 250 MG CAP PO SCH (08:29)
[2017-09-13] MEDS: Famotidine 20 MG TAB PO SCH ×2 (08:29→21:36)
[2017-09-13] MEDS: guaiFENesin ER 600 MG TAB PO SCH ×2 (08:29→21:36)
[2017-09-13] MEDS: Folic Acid 1 MG TAB PO SCH (08:29)
[2017-09-13] MEDS: Magnesium Oxide 400 MG TAB PO SCH (08:29)
[2017-09-13] MEDS: Oseltamivir 75 MG CAP PO SCH ×2 (08:30→21:41)
[2017-09-13] MEDS: Amlodipine 5 MG TAB PO SCH (08:30)
[2017-09-13] MEDS: Atenolol 25 MG TAB PO SCH (08:31)
--- NOTE | 2017-09-13 12:52 | PDOC.PN ---
- Subjective Encounter Start Date: 09/13/17 Encounter Start Time: 11:30 Subjective: feels better, still has cough with no expectoration -: eating better - Objective Resuscitation Status: Resuscitation Status DNR:Do Not Resuscitate MAR Reviewed: Yes Vital Signs & Weight: Vital Signs (12 hours) Temp Pulse Resp BP BP Pulse Ox 09/13/17 12:00 97.8 F 77 16 150/84 H 94 L 09/13/17 08:31 95 162/110 H 09/13/17 08:30 95 162/110 H 09/13/17 08:00 98.7 F 95 22 H 92 L Weight Weight 128 lb 12 oz I&O: 09/12/17 09/13/17 09/14/17 06:59 06:59 06:59 Intake Total 740 1530 180 Output Total 1 Balance 740 1529 180 Result Diagrams: 09/13/17 05:05 09/13/17 05:05 Phys Exam - Physical Examination HEENT: PERRLA, sclera anicteric Neck: no JVD, supple Respiratory: no wheezing, no rales Cardiovascular: RRR, no significant murmur Gastrointestinal: soft, non-tender, positive bowel sounds Musculoskeletal: no edema, pulses present Neurological: non-focal, moves all 4 limbs Psychiatric: A&O x 3 Dx/Plan (1) Influenza B Code(s): J10.1 - FLU DUE TO OTH IDENT INFLUENZA VIRUS W OTH RESP MANIFEST Status: Acute (2) PNA (pneumonia) Code(s): J18.9 - PNEUMONIA, UNSPECIFIED ORGANISM Status: Acute Qualifiers: Pneumonia type: due to unspecified organism Laterality: right (3) Compression fracture of thoracic vertebra Code(s): S22.000A - WEDGE COMPRESSION FRACTURE OF UNSP THORACIC VERTEBRA, INIT Status: Chronic Qualifiers: Fracture type: closed (4) Afib Code(s): I48.91 - UNSPECIFIED ATRIAL FIBRILLATION Status: Chronic Qualifiers: Atrial fibrillation type: chronic Qualified Code(s): I48.2 - Chronic atrial fibrillation (5) DM type 2 (diabetes mellitus, type 2) Status: Chronic Qualifiers: Diabetes mellitus complication status: with unspecified complications Diabetes mellitus assisted insulin use: without director long term care use Qualified Code( s): E11.8 - Type 2 diabetes mellitus with unspecified complications (6) HTN (hypertension) Code(s): I10 - ESSENTIAL (PRIMARY) HYPERTENSION Status: Chronic Qualifiers: Hypertension type: essential hypertension Qualified Code(s): I10 - Essential (primary) hypertension (7) Dyslipidemia Code(s): E78.5 - HYPERLIPIDEMIA, UNSPECIFIED Status: Chronic (8) Hypothyroidism Code(s): E03.9 - HYPOTHYROIDISM, UNSPECIFIED Status: Chronic Qualifiers: Hypothyroidism type: unspecified Qualified Code(s): E03.9 - Hypothyroidism , unspecified (9) Warfarin-induced coagulopathy Code(s): D68.9 - COAGULATION DEFECT, UNSPECIFIED; T45.515A - ADVERSE EFFECT OF ANTICOAGULANTS, INITIAL ENCOUNTER Status: Resolved (10) Dementia Code(s): F03.90 - UNSPECIFIED DEMENTIA WITHOUT BEHAVIORAL DISTURBANCE Status: Chronic Qualifiers: Dementia type: unspecified type - Plan on vanc and zosyn, will switch to augmentin in am -: tamiflu, nebs -: dc lasix -: atenolol and norvasc -: encourage po intake, no further coumadin until dc * . Review of Systems - Medications/Allergies Allergies/Adverse Reactions: Allergies Allergy/AdvReac Type Severity Reaction Status Date / Time ciprofloxacin [From Cipro] Allergy Verified 09/10/17 20:42 codeine Allergy Verified 09/10/17 20:42 peanut Allergy Verified 09/10/17 20:42 Sulfa (Sulfonamide Allergy Verified 09/10/17 20:42 Antibiotics) Medications: Current Medications Acetaminophen (Tylenol) 650 mg PO Q4H PRN PRN Reason: Headache/Fever or Pain Al Hydroxide/Mg Hydroxide (Maalox) 30 ml PO Q6H PRN PRN Reason: Heartburn or Indigestion Albuterol/Ipratropium (Duoneb) 3 ml NEB Q6H PRN PRN Reason: SOB &/or Wheezing Amlodipine Besylate (Norvasc) 2.5 mg PO DAILY [facility] Last Admin: 09/13/17 08:30 Dose: 2.5 mg Atenolol (Tenormin) 25 mg PO DAILY [facility] Last Admin: 09/13/17 08:31 Dose: 25 mg Cholecalciferol (Vitamin D3) 2,000 units PO DAILY [facility] Last Admin: 09/13/17 08:30 Dose: 2,000 units Famotidine (Pepcid) 20 mg PO BID [facility] Last Admin: 09/13/17 08:29 Dose: 20 mg Folic Acid (Folvite) 1 mg PO DAILY [facility] Last Admin: 09/13/17 08:29 Dose: 1 mg Guaifenesin (Robitussin Sf) 200 mg PO Q4H PRN PRN Reason: Cough Guaifenesin (Mucinex) 600 mg PO Q12HR [facility] Last Admin: 09/13/17 08:29 Dose: 600 mg Hydralazine HCl (Apresoline) 10 mg SLOW IVP Q4H PRN PRN Reason: Systolic BP > 180 Piperacillin Sod/Tazobactam (Sod 3.375 gm/ Sodium Chloride) 100 mls @ 200 mls/ hr IVPB Q6HR [facility] Last Admin: 09/13/17 11:52 Dose: 100 mls Vancomycin HCl 1.25 gm/ Sodium (Chloride) 250 mls @ 166.667 mls/hr IVPB Q24HR@ 2200 [facility] Last Admin: 09/12/17 22:05 Dose: 250 mls Levothyroxine Sodium (Synthroid) 100 mcg PO 0600 [facility] Last Admin: 09/13/17 06:37 Dose: 100 mcg Loperamide HCl (Imodium) 2 mg PO PRN PRN PRN Reason: Diarrhea/Loose Stools Magnesium Hydroxide (Milk Of Magnesium) 30 ml PO DAILYPRN PRN PRN Reason: Constipation Magnesium Oxide (Magnesium Oxide) 400 mg PO DAILY [facility] Last Admin: 09/13/17 08:29 Dose: 400 mg Mirtazapine (Remeron) 7.5 mg PO HS [facility] Last Admin: 09/12/17 20:16 Dose: 7.5 mg Miscellaneous Medication (Pharmacy To Dose) 0 each IVPB PRN PRN PRN Reason: VANC Pharmacy to Dose Ondansetron HCl (Zofran Odt) 4 mg PO Q6H PRN PRN Reason: Nausea/Vomiting Ondansetron HCl (Zofran) 4 mg IVP Q6H PRN PRN Reason: Nausea/Vomiting Oseltamivir Phosphate (Tamiflu) 75 mg PO BID [facility] Stop: 09/15/17 21:01 Last Admin: 09/13/17 08:30 Dose: 75 mg Saccharomyces Boulardii (Florastor) 250 mg PO DAILY [facility] Last Admin: 09/13/17 08:29 Dose: 250 mg Senna (Senokot) 2 tab PO HSPRN PRN PRN Reason: Constipation Sodium Chloride (Flush - Normal Saline) 10 ml IVF Q12HR [facility] Last Admin: 09/13/17 08:31 Dose: 10 ml Sodium Chloride (Flush - Normal Saline) 10 ml IVF PRN PRN PRN Reason: Saline Flush
[2017-09-13] MEDS: Mirtazapine 15 MG TAB PO SCH (21:42)
[2017-09-13] MEDS: Vancomycin HCl 1.25 GM in Sodium Chloride 0.9% 250 ML 250 ML IVPB SCH (21:50)
[2017-09-14 05:04] LABS: INR-International Normal Ratio 1.6; PTT 38.1 SEC (22.9-36.1); Prothrombin Time 19.2 SEC (12.0-14.7)
[2017-09-14] MEDS: Piperacillin/Tazobactam 3.375 GM in Sodium Chloride 0.9% 100 ML IVPB SCH (05:28)
[2017-09-14] MEDS: Levothyroxine Sodium 100 MCG TAB PO SCH (05:35)
[2017-09-14] MEDS: Oseltamivir 75 MG CAP PO SCH ×2 (08:10→21:45)
[2017-09-14] MEDS: Famotidine 20 MG TAB PO SCH ×2 (08:10→21:45)
[2017-09-14] MEDS: Saccharomyces boulardii 250 MG CAP PO SCH (08:11)
[2017-09-14] MEDS: Amlodipine 5 MG TAB PO SCH (08:11)
[2017-09-14] MEDS: Magnesium Oxide 400 MG TAB PO SCH (08:12)
[2017-09-14] MEDS: Atenolol 25 MG TAB PO SCH (08:12)
[2017-09-14] MEDS: Folic Acid 1 MG TAB PO SCH (08:12)
[2017-09-14] MEDS: guaiFENesin ER 600 MG TAB PO SCH ×2 (08:18→21:45)
--- NOTE | 2017-09-14 10:45 | PDOC.PN ---
- Subjective Encounter Start Date: 09/14/17 Encounter Start Time: 09:45 Subjective: awake, responds well to verbal stimuli -: moves all extremities - Objective Resuscitation Status: Resuscitation Status DNR:Do Not Resuscitate MAR Reviewed: Yes Vital Signs & Weight: Vital Signs (12 hours) Temp Pulse Resp BP BP Pulse Ox 09/14/17 08:12 96 154/90 H 09/14/17 08:11 96 09/14/17 08:00 99.5 F 96 24 H 174/86 H 93 L Weight Weight 129 lb 9 oz I&O: 09/13/17 09/14/17 09/15/17 06:59 06:59 06:59 Intake Total 1530 1390 Output Total 1 Balance 1529 1390 Result Diagrams: 09/13/17 05:05 09/13/17 05:05 Phys Exam - Physical Examination HEENT: PERRLA, moist MMs Neck: no JVD, supple Respiratory: no wheezing, no rales Cardiovascular: RRR, no significant murmur Gastrointestinal: soft, non-tender, positive bowel sounds Musculoskeletal: no edema, pulses present Neurological: non-focal, moves all 4 limbs Dx/Plan (1) Influenza B Code(s): J10.1 - FLU DUE TO OTH IDENT INFLUENZA VIRUS W OTH RESP MANIFEST Status: Acute (2) PNA (pneumonia) Code(s): J18.9 - PNEUMONIA, UNSPECIFIED ORGANISM Status: Acute Qualifiers: Pneumonia type: due to unspecified organism Laterality: right (3) Compression fracture of thoracic vertebra Code(s): S22.000A - WEDGE COMPRESSION FRACTURE OF UNSP THORACIC VERTEBRA, INIT Status: Chronic Qualifiers: Fracture type: closed (4) Afib Code(s): I48.91 - UNSPECIFIED ATRIAL FIBRILLATION Status: Chronic Qualifiers: Atrial fibrillation type: chronic Qualified Code(s): I48.2 - Chronic atrial fibrillation (5) DM type 2 (diabetes mellitus, type 2) Status: Chronic Qualifiers: Diabetes mellitus complication status: with unspecified complications Diabetes mellitus mcfp insulin use: without intermediate manager use Qualified Code( s): E11.8 - Type 2 diabetes mellitus with unspecified complications (6) HTN (hypertension) Code(s): I10 - ESSENTIAL (PRIMARY) HYPERTENSION Status: Chronic Qualifiers: Hypertension type: essential hypertension Qualified Code(s): I10 - Essential (primary) hypertension (7) Dyslipidemia Code(s): E78.5 - HYPERLIPIDEMIA, UNSPECIFIED Status: Chronic (8) Hypothyroidism Code(s): E03.9 - HYPOTHYROIDISM, UNSPECIFIED Status: Chronic Qualifiers: Hypothyroidism type: unspecified Qualified Code(s): E03.9 - Hypothyroidism , unspecified (9) Warfarin-induced coagulopathy Code(s): D68.9 - COAGULATION DEFECT, UNSPECIFIED; T45.515A - ADVERSE EFFECT OF ANTICOAGULANTS, INITIAL ENCOUNTER Status: Resolved (10) Dementia Code(s): F03.90 - UNSPECIFIED DEMENTIA WITHOUT BEHAVIORAL DISTURBANCE Status: Chronic Qualifiers: Dementia type: unspecified type - Plan dc iv antibiotics, switch to omnicef -: is on tamiflu till am, lewis cultures are-ve -: dc plan in am to snf -: encourage po intake -: oob to chair as tolerated, i.spirometry * . Review of Systems - Medications/Allergies Allergies/Adverse Reactions: Allergies Allergy/AdvReac Type Severity Reaction Status Date / Time ciprofloxacin [From Cipro] Allergy Verified 09/10/17 20:42 codeine Allergy Verified 09/10/17 20:42 peanut Allergy Verified 09/10/17 20:42 Sulfa (Sulfonamide Allergy Verified 09/10/17 20:42 Antibiotics) Medications: Current Medications Acetaminophen (Tylenol) 650 mg PO Q4H PRN PRN Reason: Headache/Fever or Pain Al Hydroxide/Mg Hydroxide (Maalox) 30 ml PO Q6H PRN PRN Reason: Heartburn or Indigestion Albuterol/Ipratropium (Duoneb) 3 ml NEB Q6H PRN PRN Reason: SOB &/or Wheezing Amlodipine Besylate (Norvasc) 2.5 mg PO DAILY [facility] Last Admin: 09/14/17 08:11 Dose: 2.5 mg Atenolol (Tenormin) 25 mg PO DAILY [facility] Last Admin: 09/14/17 08:12 Dose: 25 mg Cefdinir (Omnicef) 300 mg PO BID [facility] Cholecalciferol (Vitamin D3) 2,000 units PO DAILY [facility] Last Admin: 09/14/17 08:10 Dose: 2,000 units Famotidine (Pepcid) 20 mg PO BID [facility] Last Admin: 09/14/17 08:10 Dose: 20 mg Folic Acid (Folvite) 1 mg PO DAILY [facility] Last Admin: 09/14/17 08:12 Dose: 1 mg Guaifenesin (Robitussin Sf) 200 mg PO Q4H PRN PRN Reason: Cough Guaifenesin (Mucinex) 600 mg PO Q12HR [facility] Last Admin: 09/14/17 08:18 Dose: 600 mg Hydralazine HCl (Apresoline) 10 mg SLOW IVP Q4H PRN PRN Reason: Systolic BP > 180 Levothyroxine Sodium (Synthroid) 100 mcg PO 0600 [facility] Last Admin: 09/14/17 05:35 Dose: 100 mcg Loperamide HCl (Imodium) 2 mg PO PRN PRN PRN Reason: Diarrhea/Loose Stools Magnesium Hydroxide (Milk Of Magnesium) 30 ml PO DAILYPRN PRN PRN Reason: Constipation Magnesium Oxide (Magnesium Oxide) 400 mg PO DAILY [facility] Last Admin: 09/14/17 08:12 Dose: 400 mg Mirtazapine (Remeron) 7.5 mg PO HS [facility] Last Admin: 09/13/17 21:42 Dose: 7.5 mg Ondansetron HCl (Zofran Odt) 4 mg PO Q6H PRN PRN Reason: Nausea/Vomiting Ondansetron HCl (Zofran) 4 mg IVP Q6H PRN PRN Reason: Nausea/Vomiting Oseltamivir Phosphate (Tamiflu) 75 mg PO BID [facility] Stop: 09/15/17 21:01 Last Admin: 09/14/17 08:10 Dose: 75 mg Saccharomyces Boulardii (Florastor) 250 mg PO DAILY [facility] Last Admin: 09/14/17 08:11 Dose: 250 mg Senna (Senokot) 2 tab PO HSPRN PRN PRN Reason: Constipation Sodium Chloride (Flush - Normal Saline) 10 ml IVF Q12HR [facility] Last Admin: 09/14/17 08:18 Dose: 10 ml Sodium Chloride (Flush - Normal Saline) 10 ml IVF PRN PRN PRN Reason: Saline Flush
--- NOTE | 2017-09-14 11:05 | PQF ---
CLINICAL DOCUMENTATION IMPROVEMENT CLARIFICATION FORM: ICD-10 Updated PLEASE DO AN ADDENDUM TO THE PROGRESS NOTE WITH ANY DOCUMENTATION UPDATES OR ADDITIONS AND CARRY THROUGH TO DC SUMMARY. THANK YOU. DATE: 09/14/17 ATTN: Dr. Meza Please exercise your independent, professional judgment in responding to the clarification form. Clinical indicators are provided on the bottom of this form for your review Please check appropriate box(s): [ ] Aspiration Pneumonia [ ] Empirically treating Gram Negative Pneumonia [ ] Empirically treating Anaerobic Pneumonia [ ] Pneumonia secondary to (specify organism / underlying disease) [ x ] Pneumonia of unknown etiology [ ] Other diagnosis [ ] Unable to determine In addition, please specify: Present on Admission (POA): [ x ] Yes [ ] No [ ] Unable to determine For continuity of documentation, please document condition throughout progress notes and discharge summary. Thank You. CLINICAL INDICATORS - SIGNS / SYMPTOMS / LABS H&P: HYPOXIC REQUIRING OXYGEN. CT CHEST SHOWING BILATERAL PLEURAL EFFUSIONS, RIGHT UPPER LOBE PATCHY INFILTRATION PN 09/11- 09/13: INFLUENZA B PNEUMONIA D/T UNSPECIFIED ORGANISM. RIGHT RISKS: H&P: AGE 87. LIV[facility] AT [facility]. RU LOBE FPC-ACQUIRED PNEUMONIA, FAILED OUTPT THERAPY. ACUTE HYPOXIC RESPIRATORY FAILURE. MODERATE PROTEIN-CALORIE MALNUTRITION. TREATMENT: CPOE 09/10: RESP: O2 TO KEEP SATS 92% PN 09/13: ON VANC & ZOSYN, WILL SWITCH TO AUGMENTIN IN AM Thank you, Fifi (This form is maintained as a part of the permanent medical record) 2015 [employer]. All Rights Reserved Fifi Myers RN, BSN [email or web address] Office: [phone] [facility]
[2017-09-14] MEDS: Cefdinir 300 MG CAP PO SCH ×2 (13:01→21:45)
[2017-09-14 21:15] LABS: Vancomycin, Trough 17.8 ug/mL
[2017-09-14] MEDS: Mirtazapine 15 MG TAB PO SCH (21:45)
[2017-09-15 05:20] LABS: INR-International Normal Ratio 1.5; Prothrombin Time 18.1 SEC (12.0-14.7)
[2017-09-15] MEDS: Levothyroxine Sodium 100 MCG TAB PO SCH (05:45)
[2017-09-15] MEDS: Atenolol 25 MG TAB PO SCH (07:54)
[2017-09-15] MEDS: Oseltamivir 75 MG CAP PO SCH (07:55)
[2017-09-15] MEDS: Famotidine 20 MG TAB PO SCH (07:55)
[2017-09-15] MEDS: Magnesium Oxide 400 MG TAB PO SCH (07:55)
[2017-09-15] MEDS: guaiFENesin ER 600 MG TAB PO SCH (07:55)
[2017-09-15] MEDS: Amlodipine 5 MG TAB PO SCH (07:55)
[2017-09-15] MEDS: Folic Acid 1 MG TAB PO SCH (07:55)
[2017-09-15] MEDS: Cefdinir 300 MG CAP PO SCH (07:55)
[2017-09-15] MEDS: Saccharomyces boulardii 250 MG CAP PO SCH (07:56)
[2017-09-15 11:20] VITALS: BP 130/76; TEMP 97.8
--- NOTE | 2017-09-15 13:13 | PDOC.PN ---
- Subjective Encounter Start Date: 09/15/17 Encounter Start Time: 08:50 Subjective: no sob, feels better - Objective Resuscitation Status: Resuscitation Status DNR:Do Not Resuscitate MAR Reviewed: Yes Vital Signs & Weight: Vital Signs (12 hours) Temp Pulse Resp BP BP Pulse Ox 09/15/17 11:16 97.8 F 109 H 22 H 130/76 95 09/15/17 08:00 98.0 F 83 20 95 09/15/17 07:55 98.0 F 78 20 154/91 H 154/91 H 90 L 09/15/17 07:54 83 154/91 H Weight Weight 129 lb 1.996 oz I&O: 09/14/17 09/15/17 09/16/17 06:59 06:59 06:59 Intake Total 1390 850 240 Balance 1390 850 240 Result Diagrams: 09/13/17 05:05 09/13/17 05:05 Phys Exam - Physical Examination HEENT: PERRLA, moist MMs Neck: no JVD, supple Respiratory: no wheezing, no rales Cardiovascular: RRR, no significant murmur Gastrointestinal: soft, non-tender, positive bowel sounds Musculoskeletal: no edema, pulses present Neurological: non-focal, moves all 4 limbs Psychiatric: A&O x 3 Dx/Plan (1) Influenza B Code(s): J10.1 - FLU DUE TO OTH IDENT INFLUENZA VIRUS W OTH RESP MANIFEST Status: Acute (2) PNA (pneumonia) Code(s): J18.9 - PNEUMONIA, UNSPECIFIED ORGANISM Status: Acute Qualifiers: Pneumonia type: due to unspecified organism Laterality: right (3) Compression fracture of thoracic vertebra Code(s): S22.000A - WEDGE COMPRESSION FRACTURE OF UNSP THORACIC VERTEBRA, INIT Status: Chronic Qualifiers: Fracture type: closed (4) Afib Code(s): I48.91 - UNSPECIFIED ATRIAL FIBRILLATION Status: Chronic Qualifiers: Atrial fibrillation type: chronic Qualified Code(s): I48.2 - Chronic atrial fibrillation (5) DM type 2 (diabetes mellitus, type 2) Status: Chronic Qualifiers: Diabetes mellitus complication status: with unspecified complications Diabetes mellitus bed bug exterminator insulin use: without skilled nursing use Qualified Code( s): E11.8 - Type 2 diabetes mellitus with unspecified complications (6) HTN (hypertension) Code(s): I10 - ESSENTIAL (PRIMARY) HYPERTENSION Status: Chronic Qualifiers: Hypertension type: essential hypertension Qualified Code(s): I10 - Essential (primary) hypertension (7) Dyslipidemia Code(s): E78.5 - HYPERLIPIDEMIA, UNSPECIFIED Status: Chronic (8) Hypothyroidism Code(s): E03.9 - HYPOTHYROIDISM, UNSPECIFIED Status: Chronic Qualifiers: Hypothyroidism type: unspecified Qualified Code(s): E03.9 - Hypothyroidism , unspecified (9) Warfarin-induced coagulopathy Code(s): D68.9 - COAGULATION DEFECT, UNSPECIFIED; T45.515A - ADVERSE EFFECT OF ANTICOAGULANTS, INITIAL ENCOUNTER Status: Resolved (10) Dementia Code(s): F03.90 - UNSPECIFIED DEMENTIA WITHOUT BEHAVIORAL DISTURBANCE Status: Chronic Qualifiers: Dementia type: unspecified type - Plan on omnicef and tamiflu -: oral coumadin -: dc pt to snf -: d/w nephew * .
--- NOTE | 2017-09-15 14:42 | DIS ---
DISCHARGE DISPOSITION: To [facility]. PRIMARY DISCHARGE DIAGNOSES: 1. Influenza B. 2. Right lung pneumonia. SECONDARY DISCHARGE DIAGNOSES: Chronic history of compression fracture of thoracic vertebra, chronic atrial fibrillation, very poor functional status with patient bed bound due to severe arthritis, diabetes mellitus type 2, hypertension, chronic atrial fibrillation, dyslipidemia, hypothyroidism, dementia. PROCEDURES DONE DURING HOSPITALIZATION: CT angio chest done on the day of admission showed no evidence of pulmonary embolus. Right upper lobe patchy infiltrate, multiple compression fractures of thoracic spine with exaggerated kyphosis were seen. Blood cultures x2 no growth. Urine culture no growth. Influenza nasal swab was positive for influenza B antigen. She had a high INR of 10 on the day of admission with discharge numbers of 1.5. H&H 12 and 38, platelet count 313. Discharge BUN and creatinine is 13 and 0.7. Cardiac enzymes x1 was negative. DISCHARGE MEDICATIONS: Albuterol nebulizer 3 times daily p.r.n., Norvasc 2.5 mg p.o. daily, atenolol 25 mg p.o. daily, Tessalon Perles 100 mg p.o. 3 times daily for a week, Omnicef 300 mg p.o. twice daily for a total of 3 days, Mucinex 600 mg p.o. twice daily for 5 days, levothyroxine 100 mcg p.o. daily, methotrexate 10 mg p.o. once a week, Remeron 7.5 mg p.o. at bedtime, MiraLax 17 grams on Tuesday, Tuesday and Fridays, potassium chloride 20 mEq p.o. daily, magnesium oxide 400 mg p.o. daily, Florastor 250 mg p.o. daily for 1 week and Coumadin as before. ALLERGIES: CIPROFLOXACIN, CODEINE, SULFA and PEANUTS. DISCHARGE PLAN: Patient to follow up with primary care physician in 1 week. She also needs an INR to be done on Tuesday. BRIEF COURSE DURING HOSPITALIZATION: The patient initially got admitted on the after she was transferred from [facility] for hypoxia. She was essentially admitted for influenza B and pneumonia. The patient was placed on IV antibiotics. She was also found to have had coagulopathy due to Coumadin on admission with INR of 10. Her Coumadin was held up until the day of discharge. She has done remarkably well during her stay here. The patient still has some dry coughing spells, but mostly she is hemodynamically stable. She needs to continue Tessalon and Mucinex along with albuterol nebulizers for at least a week. She is recovering well from influenza B and pneumonia. The patient has been restarted on Coumadin at the time of discharge and needs to check her INR on Tuesday. She has very poor functional status and is essentially bed bound. She is otherwise hemodynamically stable and will be shortly discharged back to [facility]. A total of 35 minutes was spent on discharge plan. Please see a face to face documentation on [facility] for the day of discharge. MARCELA
--- NOTE | 2017-09-25 18:38 | PQF ---
NASRIN PETERSON SALIM NOORJIBHAI MD [id number] CLINICAL DOCUMENTATION CLARIFICATION FORM: POST DISCHARGE Addendum to original discharge summary date: ____ Late entry note date: __ NASRIN PETERSON [id number] PLEASE DOCUMENT YOUR RESPONSE BELOW PLEASE FAX RESPONSE BACK TO YOUR INPUT IS NEEDED TO CORRECTLY CODE A DIAGNOSIS FOR YOUR PATIENT. DATE: 09/25/2017 ATTN: ISIDORO CALLAHAN MD Please exercise your independent, professional judgment in responding to the clarification form. Clinical indicators are provided on the bottom of this form for your review Please check appropriate box(s) to clarify if the following diagnosis has been ruled in our ruled out: ACUTE HYPOXIC RESPIRATORY FAILURE [ ] Ruled in diagnosis [ ] Continue to treat [ ] Resolved [ ] Ruled out diagnosis [ ] Cannot rule out diagnosis [ ] Other diagnosis [ x ] Unable to determine In addition, please specify: Present on Admission (POA): [ ] Yes [ ] No [ x ] Unable to determine For continuity of documentation, please document condition throughout progress notes and discharge summary. Thank You. CLINICAL INDICATORS - SIGNS / SYMPTOMS / LABS H&P In the emergency room, we noted that she was having cough productive of yellowish sputum. She was hypoxic and she was requiring oxygen. VITAL SIGNS: On arrival, blood pressure 152/85, pulse 82, respiratory rate 24 , temperature 97.6, saturation 93% on 2 liter oxygen, weight 61.2 kilograms. LUNGS: Bibasilar rales noted. Bibasilar reduced air entry and expiratory wheezing heard all over, especially on the right upper lobe. ASSESSMENT: Acute hypoxic respiratory failure PROGRESS NOTES Respiratory: no wheezing, no rales ER HPI SHORTNESS OF BREATH: 87F [facility]. Noticed patient was hypoxic and requiring O2 admin. Per NH, patient just finished treatment for pneumonia. Associated with upper respiratory infection. PHYSICAL EXAM: Respiratory rate increased. RESPIRATORY CHEST: No respiratory distress, Rhonchi present to the left lower lobe, breath sounds diminished to bilateral lower lobes O2SAT INTERPRETATION: Oxygen saturation interpretation: Hypoxic, Intervention required: oxygen administration. DIAGNOSIS FINAL: PRIMARY: Pneumonia, ADDITIONAL: Hypoxia RISK FACTORS Requiring oxygen Ex-smoker CHF exacerbation TREATMENTS Oxygen Monitoring of oxygenation status (This form is maintained as a part of the permanent medical record) 2014 [employer]. All Rights Reserved [employer] [phone] MTDD
--- NOTE | 2017-09-25 18:45 | PQF ---
NASRIN PETERSON SALIM NOORJIBHAI MD [id number] CLINICAL DOCUMENTATION CLARIFICATION FORM: POST DISCHARGE Addendum to original discharge summary date: ____ Late entry note date: __ NASRIN PETERSON [id number] PLEASE DOCUMENT YOUR RESPONSE BELOW PLEASE FAX RESPONSE BACK TO YOUR INPUT IS NEEDED TO CORRECTLY CODE A DIAGNOSIS FOR YOUR PATIENT. DATE: 09/25/2017 ATTN: ISIDORO CALLAHAN MD Please exercise your independent, professional judgment in responding to the clarification form. Clinical indicators are provided on the bottom of this form for your review Please check appropriate box(s) to clarify if the following diagnosis has been ruled in our ruled out: ACUTE ON CHRONIC DIASTOLIC HEART FAILURE EXACERBATION [ ] Ruled in diagnosis [ ] Continue to treat [ ] Resolved [ ] Ruled out diagnosis [ ] Cannot rule out diagnosis [ ] Other diagnosis [ x ] Unable to determine In addition, please specify: Present on Admission (POA): [ ] Yes [ ] No [ x ] Unable to determine For continuity of documentation, please document condition throughout progress notes and discharge summary. Thank You. CLINICAL INDICATORS - SIGNS / SYMPTOMS / LABS H&P HISTORY OF PRESENT ILLNESS: She was hypoxic and she was requiring oxygen. Initial chest x-ray was unremarkable, and they did a CT angio to rule out PE that showed right upper lobe infiltration and bibasilar pleural effusion. She is not sure about the diagnosis of congestive heart failure. PAST MEDICAL HISTORY: Hypertension, History of CHF VITAL SIGNS: On arrival, blood pressure 152/85, pulse 82, respiratory rate 24 , temperature 97.6, saturation 93% on 2 liter oxygen, weight 61.2 kilograms. SIGNIFICANT LABORATORY AND DIAGNOSTIC DATA: CT chest showing bilateral pleural effusion, BUN 21, BNP 157.1 ASSESSMENT: Acute on chronic diastolic heart failure exacerbation. ER HPI SHORTNESS OF BREATH: 87F presents from NH for evaluation of dyspnea and hypoxia. Noticed patient was hypoxic and requiring O2 admin. Per NH, patient just finished treatment for pneumonia. O2SAT INTERPRETATION: Oxygen saturation interpretation: Hypoxic, Intervention required: oxygen administration. DIAGNOSIS FINAL: PRIMARY: Pneumonia, ADDITIONAL: Hypoxia RISK FACTORS Hypertension TREATMENTS Cardiac monitoring Oxygen (This form is maintained as a part of the permanent medical record) 2014 [employer]. All Rights Reserved [employer] [email or web address] [phone] MTDD
--- NOTE | 2017-10-08 17:33 | EKG ---
Test Reason : Blood Pressure : / mmHG Vent. Rate : 064 BPM Atrial Rate : 054 BPM P-R Int : 000 ms QRS Dur : 114 ms QT Int : 430 ms P-R-T Axes : 000 -44 105 degrees QTc Int : 443 ms Atrial fibrillation Left axis deviation Inferior infarct , age undetermined Anterolateral infarct , age undetermined Abnormal ECG Confirmed by GRAHAM CRUZ, JULIO ([id number]), video news editor ESPERANZA AL ([id number]) on 10/08/2017 5:33:12 PM Referred By: Confirmed By:JULIO STEVENSON MD
== END 2017-09-15 12:05 | DRG 193 ==
LOC: ERS 19:59 → T4-A 22:00
PROVIDERS: ADMIT Internal Medicine; ATTEND Internal Medicine
DX: J10.00 Influenza due to other identified influenza virus with unspecified type of pneumonia (principal); J96.01 Acute respiratory failure with hypoxia; I50.33 Acute on chronic diastolic (congestive) heart failure; E44.0 Moderate protein-calorie malnutrition; S22.009A Unspecified fracture of unspecified thoracic vertebra, initial encounter for closed fracture; D68.9 Coagulation defect, unspecified; I48.2 Chronic atrial fibrillation; E11.9 Type 2 diabetes mellitus without complications; E03.9 Hypothyroidism, unspecified; J98.11 Atelectasis; Z66 Do not resuscitate; I11.0 Hypertensive heart disease with heart failure; E78.5 Hyperlipidemia, unspecified; T45.515A Adverse effect of anticoagulants, initial encounter; F03.90 Unspecified dementia, unspecified severity, without behavioral disturbance, psychotic disturbance, mood disturbance, and anxiety; Z85.3 Personal history of malignant neoplasm of breast; Z86.711 Personal history of pulmonary embolism; Z87.891 Personal history of nicotine dependence; Z74.01 Bed confinement status; M19.90 Unspecified osteoarthritis, unspecified site
CPT/HCPCS: 36415; 36416; 51701; 71045; 71275; 80048; 80053; 80202; 81003; 81015; 82553; 83605; 83880; 84484; 84550; 85025; 85610; 85730; 87040; 87086; 87804; 93005; 93306; 94760; 96361; 96365; 96367; A4216; A4353; G8978-GP-CN; G8979-GP-CL; G8987-GO-CL; G8988-GO-CK; J1940; J2543; J3370; J3430; J7050